=== PATIENT | female | born 1990 | race Caucasian/White ===

== ENCOUNTER 2017-02-22 15:34 | Emergency (ER) | payer MEDICAID ==
[2017-02-22 15:50] VITALS: BP 147/94
--- NOTE | 2017-02-22 17:55 | ED Physician Documentation ---
History of Present Illness - Stated complaint Stated Complaint: BUMP ON ARMPIT - Chief complaint Chief Complaint: Ext Problem - Additonal information Additional information: hx from pt 27 y/o f denies preg has implanted control to ER with a sore in her right axillae hx abscess no hx MRSA small dc already otherwise well Review of Systems Constitutional: denies: Fever, Chills : denies: Now EGA Skin: reports: Lesions PD PAST MEDICAL HISTORY - Past Medical History HEENT: Chronic vision loss - Past Surgical History Past Surgical History: Yes HEENT: Cataracts - Present Medications Home Medications: Ambulatory Orders Medication Instructions Recorded Confirmed Cephalexin [Keflex] 500 mg PO Q6H #28 capsule 02/22/17 Clindamycin Phosphate 1 applic TP BID #15 ml 02/22/17 - Allergies Allergies/Adverse Reactions: Allergies Allergy/AdvReac Type Severity Reaction Status Date / Time acetaminophen [From Vicodin] AdvReac Itching Verified 12/30/13 12:14 hydrocodone bitartrate * AdvReac Itching Verified 12/30/13 12:14 [From Vicodin] - Social History Does the pt smoke?: No Smoking Status: Never smoker Does the pt drink ETOH?: No Does the pt have substance abuse?: No - Immunizations Immunizations are current?: Yes - POLST Patient has POLST: No PD ED PE NORMAL - Vitals Vital signs reviewed: Yes - General General: Alert and oriented X 3 - Cardiac Cardiac: RRR - Respiratory Respiratory: No respiratory distress, Clear bilaterally - Derm Derm: Other (small < 1 cm induration with central ulceration and no fluctuance or dc at this time, no surroundign cellulitis) Results - Vitals Vitals: Vital Signs - 24 hr 02/22/17 15:48 Temperature 36.6 C Heart Rate 94 Respiratory 18 Rate Blood Pressure 147/94 H O2 Saturation 97 Oxygen O2 Source Room air PD MEDICAL DECISION MAKING - ED course ED course: pt states bad rxn to bactroban Departure - Departure Disposition: 01 Home, Self Care Clinical Impression: Pustule Condition: Good Prescriptions: Clindamycin Phosphate 1 applic TP BID #15 ml Cephalexin [Keflex] 500 mg PO Q6H #28 capsule Comments: Use the clindamycin lotion twice daily and warm compresses as discussed If the sore does not clear up, especially if it gets bigger or redness starts to develop - only then take the oral antibiotic Follow up with your PMD to get your blood pressure rechecked Return to the ER sooner if worse
== END 2017-02-22 18:06 | disposition home or self-care (01) ==
LOC: ED 15:34
DX: L08.9 Local infection of the skin and subcutaneous tissue, unspecified (principal)
CPT/HCPCS: 99283